=== PATIENT | female | born 1990 | race African-American/Black ===

== ENCOUNTER 2018-12-15 01:50 | Emergency (ER) | payer OTHER, MEDICAID ==
[~2018-12-15] VITALS: Ht 157.5 cm; Wt 82.0 kg
[2018-12-15] MEDS ORDERED: ONDANSETRON 4MG ODT PO STA (02:22)
[2018-12-15] MEDS ORDERED: KETOROLAC 60MG/2ML VIAL IM ONE (02:45)
[2018-12-15 02:53] LABS: BASOPHILS % 0.7 % (0.0-2.0); EOSINOPHILS % 2.3 % (0.0-5.0); LYMPHOCYTES % 21.1 % (20.0-50.0); MEAN CORPUSCULAR HEMOGLOBIN 25.7 pg (28.0-32.0); MEAN CORPUSCULAR VOLUME 77.2 fL (81.0-99.0); MEAN PLATELET VOLUME 7.8 fl (7.4-10.4); MONOCYTES % 6.5 % (2.0-8.0); NEUTROPHILS % 69.4 % (40.0-76.0); PLATELET 248 x1000/uL (130-400); RED BLOOD CELL COUNT 5.05 mill/uL (4.2-5.4); RED CELL DISTRIBUTION WIDTH 13.7 % (11.6-14.6)
[2018-12-15 02:57] LABS: CLARITY URINE CLOUDY (CLEAR); COLOR URINE YELLOW (YELLOW); KETONES URINE TRACE (NEGATIVE); LEUKOCYTE ESTERASE URINE 1+ (NEGATIVE); NITRITE URINE NEGATIVE (NEGATIVE); OCCULT BLOOD URINE 2+ (NEGATIVE); PH URINE 5.5 (4.5-8.0); PROTEIN URINE NEGATIVE (NEGATIVE); SPECIFIC GRAVITY URINE 1.022 (1.005-1.030)
[2018-12-15 03:00] LABS: CHLORIDE 104 mEq/L (98-107)
[2018-12-15] MEDS ORDERED: CEPHALEXIN 250MG CAPSULE PO NR (04:00)
[2018-12-15 05:13] VITALS: BP 122/70
== END 2018-12-15 05:16 | disposition home or self-care (01) ==
LOC: ER 01:50
DX: N39.0 Urinary tract infection, site not specified (principal); R11.10 Vomiting, unspecified; R51 Headache; R42 Dizziness and giddiness; Z91.81 History of falling
CPT/HCPCS: 36415; 70450; 80053; 81003; 83690; 85025; 87086; 96372; 99284; J1885; Q0162